=== PATIENT | male | born 1995 | race Caucasian/White ===

== ENCOUNTER 2018-02-19 07:28 | Day surgery (SDC) | payer BC, OTHER ==
[2018-02-18 09:05] VITALS: BMI 32.5
[~2018-02-19 07:28] MED LIST: LACTATED RINGERS 1,000 ML IV SCH
[2018-02-19] MEDS ORDERED: LIDOCAINE 1% 20 ML VIAL (10MG/ML) FOR IV START INTRADERMA ONE (07:47)
[2018-02-19 08:07] VITALS: TEMP 97.7
[2018-02-19] MEDS ORDERED: PROPOFOL 10 MG/ML 20 ML VIAL IV ONE (08:40)
[2018-02-19] MEDS ORDERED: LIDOCAINE 1% INJ 10MG/ML (20 ML MDV) ONE (08:40)
--- NOTE | 2018-02-19 09:24 | P.PCN ---
Date of Procedure: 02/19/18 Procedure(s) Performed: Procedures: 1. Esophagogastroduodenoscopy and biopsy. 2. Total colonoscopy. Preoperative diagnosis: Gastroesophageal reflux, family history of colon cancer and personal history of polyps. Postoperative diagnosis: 1. Small sliding hiatal hernia with no obvious esophagitis or complicated reflux disease. 2. Mild antral gastritis. 3. Multiple biopsies obtained from the duodenum, antrum and esophagus. 4. Normal colonoscopy. Preparation: HalfLytely prep. Sedation: Was provided by anesthesia. Brief clinical history: The patient is a 22-year-old male with strong family history of colon cancer. His last colonoscopy in January 2014 revealed cecal polyp. He has been having issues with his throat since June 2016. He was evaluated by ENT and was treated with antibiotics and ALLERGY shots before he had tonsillectomy with no improvement. He remains symptomatic while on Zantac since June 2017. This evaluation is to assess for colon neoplasia and for esophagitis or complicated reflux disease and to rule out colon neoplasia. Procedure: With the patient on his left lateral decubitus position and after informed consent and adequate sedation, I passed the Olympus-GIF 160 video upper endoscope through the cricopharyngeus down the esophagus. GE junction was around 41 cm from the incisors and there was a small sliding hiatal hernia with no obvious esophagitis or complicated reflux disease. The endoscope was then passed into the stomach which was insufflated with air and inspected in detail including the retroflex view in the cardia. There was some mottling and erythema in the antrum but no ulcers or erosions. Pyloric channel, duodenal bulb, post bulbar area and descending duodenum appeared within normal limits. I obtained biopsies from the duodenum, antrum and esophagus then the endoscope was withdrawn and I proceeded with the colonoscopy. Perianal area did not show any fissures or fistulas. There were no masses felt on digital rectal examination. The Olympus CFQ 160L video colonoscope was then inserted in the rectum in the usual fashion and advanced to the cecum. The mucosa appeared healthy. No polyps or tumors were seen or any obvious diverticular disease or other pathology. I retroflexed the endoscope in the rectum before the endoscope was withdrawn. The patient tolerated the procedure well. Plan: The patient was reassured. Will await biopsy results and make further plans based on his course and biopsy results. We will keep you updated on his progress. With his history of polyps and family history of colon cancer, I recommended repeat colonoscopy in 5 years.
[2018-02-19 09:56] VITALS: BP 107/67; PULSE 81; RESP 16
== END 2018-02-19 10:00 | disposition home or self-care (01) ==
LOC: ORWHC2ENDO 07:28
DX: Z12.11 Encounter for screening for malignant neoplasm of colon (principal); K21.0 Gastro-esophageal reflux disease with esophagitis; K29.50 Unspecified chronic gastritis without bleeding; K44.9 Diaphragmatic hernia without obstruction or gangrene; Z80.0 Family history of malignant neoplasm of digestive organs; Z86.010 Personal history of colon polyps
CPT/HCPCS: 88305; 43239; J2001; J2704; G0105

== ENCOUNTER → 2018-07-30 | Outpatient (CLI) | payer BC ==
[2018-07-30 19:43] LABS: T4, Free (Free Thyroxine) 0.9 ng/dL (0.80-1.80)
== END | disposition home or self-care (01) ==
LOC: LABWHC1 12:32
PROVIDERS: ATTEND Otolaryngology
DX: E07.89 Other specified disorders of thyroid (principal)
CPT/HCPCS: 36415; 84439; 84443; 86376

== ENCOUNTER → 2023-10-06 | Outpatient (CLI) | payer BC ==
--- NOTE | 2023-10-06 07:56 | CT ---
EXAMINATION TYPE: CT sinus wo con DATE OF EXAM: 10/06/2023 COMPARISON: None HISTORY: sinusitis CT DLP: 660.[address] of the paranasal sinuses was performed in the axial and coronal planes. Bone and soft tissue settings are submitted. The paranasal sinuses demonstrate normal aeration and development. The paranasal sinuses are free of mucosal thickening or air fluid level. The osteal meatal units are patent bilaterally. The nasal septum is deviated from right to left. Nasal septal spur noted on the left. No bony destructive changes are seen within the field of view. IMPRESSION: Nasal septal deviation noted.
== END | disposition home or self-care (01) ==
LOC: RADCTMAIN 07:07
PROVIDERS: ATTEND Otolaryngology
DX: J32.0 Chronic maxillary sinusitis (principal); J34.2 Deviated nasal septum
CPT/HCPCS: 70486

== ENCOUNTER → 2023-12-03 | Outpatient (CLI) | payer BC ==
--- NOTE | 2023-12-03 21:02 | US ---
EXAMINATION TYPE: US scrotum with doppler. Grayscale and color Doppler Duplex imaging performed of teresa cortes scrotum. DATE OF EXAM: 12/03/2023 COMPARISON: NONE CLINICAL INDICATION: Male, 28 years old with history of N50.89 OTHER SPECIFIED DISORDERS OF THE MALE GENIT; Left palpable x 1 year, patient states it has not changed in size. No pain. EXAM MEASUREMENTS: TESTICLES: Right Testicle: 3.5 x 4.4 x 2.3 cm Left Testicle: 4.0 x 2.8 x 2.4 cm EPIDIDYMIS HEAD: Right Epididymis: 0.8 x 1.1 x 0.8 cm Left Epididymis: 0.6 x 1.0 x 0.9 cm Doppler performed to assess for testicular vascularity; good bilateral color flow and waveforms are s een. There is no evidence of testicular torsion. Presence of hydroceles: Bilateral Presence of varicoceles: No Area of palpable scanned- Epididymal head seen IMPRESSION: 1. No evidence for testicular torsion or mass. 2. Bilateral small hydroceles with left greater than right.
== END | disposition home or self-care (01) ==
LOC: RADUSWWP 12:42
PROVIDERS: ATTEND Family Medicine
DX: N43.3 Hydrocele, unspecified (principal); N50.89 Other specified disorders of the male genital organs
CPT/HCPCS: 76870; 93975